=== PATIENT | male | born 1960 | race Caucasian/White ===

== ENCOUNTER 2017-01-22 08:38 | Inpatient (IN) | payer OTHER ==
[~2017-01-22] VITALS: Ht 172.7 cm; Wt 84.6 kg
--- NOTE | ~2017-01-22 | CON ---
[place], [place] REPORT OF CONSULTATION NAME: DILAN CERDA UNIT #: [id number] ROOM: 523 DOCTOR: MARY PEDERSON MD BIRTHDATE: [birth year] DOS: 01/30/2017 CHIEF COMPLAINT: "I have used about everything I can, I need to find a way to get clean or I am going to ." HISTORY OF PRESENT ILLNESS: This is a 56-year-old white male who presented to [facility] for alcohol withdrawal. He states he drinks 12-18 beers a day. His last drink was in the morning of admission at 4:00 a.m. when he finished 1/4 bottle of vodka. In addition to this, he states he has used marijuana. He has shot up Percocet and by his report he has used just about every drug known to mankind and needs to get detoxed. He also admits to depressive symptomatology with poor sleep and appetite, energy, anhedonia, hopeless, helpless feelings, crying spells, and inability to cope. PAST MEDICAL HISTORY: Remarkable for diabetes, hypertension, hypothyroidism, neuropathy and hepatitis C. ALLERGY: He has allergies to STADOL and TORADOL. MENTAL STATUS: He is alert and oriented with some time gaps. Mood is depressed. Affect is flat, blunted with a constricted range. He endorses multiple neurovegetative symptoms. There is no hypomania or hayele. There are no overt psychotic symptoms. Memory has mild gaps. DIAGNOSES: Major depression, recurrent, severe, and polysubstance dependence. PLAN: I am going to go ahead and start him on Remeron 15 mg at bedtime. Check a serum ammonia level. He is awaiting [facility] into [facility]. He could potentially benefit from an inpatient stay. I would not want to delay him going into [facility], but if there is a delay in getting him into that program, a short stay on the psychiatric unit to stabilize on medication would be warranted. MARY PEDERSON MD CM:CONSTR:REPORT OF CONSULTATION 01/31/17 0223 interface
[2017-01-22 08:49] VITALS: BP 123/63
[2017-01-22 09:13] LABS: BASO # 0.1 10*3/uL (0.0-0.1); BASO % 2.2 % (0.0-1.0); EOS # 0.5 10*3/uL (0.0-0.4); EOS % 11.4 % (1.0-4.0); HEMATOCRIT 33.5 % (42.0-52.0); HEMOGLOBIN 11.5 g/dl (14.0-18.0); LYMPH % 25.2 % (27.0-41.0); MEAN CELL VOLUME 96.5 fl (80.0-94.0); MEAN CORPUSCULAR HGB 33.1 pg (27.0-31.0); MEAN CORPUSCULAR HGB CONC 34.3 g/dl (33.0-37.0); MEAN PLATELET VOLUME 9.8 fl (9.6-12.3); MONO # 0.6 10*3/uL (0.1-1.0); MONO % 15.3 % (3.0-9.0); NEUT # 1.8 10*3/uL (2.3-7.9); NEUT % 45.7 % (47.0-73.0); PLATELET COUNT AUTOMATED 123 10*3/uL (130-400); RED BLOOD COUNT 3.47 10*6/uL (4.50-5.90); RED CELL DISTRI WIDTH 14.3 % (0-14.5)
[2017-01-22 09:23] LABS: BILIRUBIN NEGATIVE (NEGATIVE); BLOOD NEGATIVE (NEGATIVE); CLARITY CLEAR (CLEAR); COLOR YELLOW (YELLOW); GLUCOSE 3+ (NEGATIVE); KETONE NEGATIVE (NEGATIVE); LEUKO ESTERASE NEGATIVE (NEGATIVE); NITRITE NEGATIVE (NEGATIVE); SPECIFIC GRAVITY <= 1.005 (1.005-1.030); UROBILINOGEN 0.2 E.U./dl (0.2-1.0)
[2017-01-22 09:32] LABS: ALBUMIN 2.7 gm/dl (3.1-4.5); ALKALINE PHOSPHATASE 165 U/L (45-117); BUN 9 mg/dl (7-24); CHLORIDE 105 mmol/L (98-107); CREATININE 1.28 mg/dL (0.70-1.30); POTASSIUM 3.7 mmol/L (3.5-5.1); SGOT/AST 202 IU/L (3-35); SGPT/ALT 170 U/L (12-78); SODIUM 134 mmol/L (136-145); TOTAL PROTEIN 7.4 gm/dL (6.4-8.2)
[2017-01-22 09:35] LABS: URINE AMPHETAMINES < 1000 (1000ng/ml); URINE BARBITURATES < 200 (200ng/ml); URINE BENZODIAZEPINES < 200 (200ng/ml); URINE CANNABINOIDS (THC) < 50 (50ng/ml); URINE COCAINE < 300 (300ng/ml); URINE METHADONE < 300 (300ng/ml); URINE OPIATES < 300 (300ng/ml)
[2017-01-22 09:36] LABS: URINE PHENCYCLIDINE < 25 (25ng/ml)
[2017-01-22 09:40] LABS: THYROID STIM HORMONE (HS) 0.582 uIU/ml (0.358-4.75)
[2017-01-22 09:51] VITALS: BP 133/78
[2017-01-22 09:59] VITALS: BP 112/69
[2017-01-22 10:01] LABS: RBC 0-2 rbc/hpf (0-2)
[2017-01-22 10:05] VITALS: BP 112/69
--- NOTE | 2017-01-22 10:05 | NUR ---
A 56, admitted to , under the services of OMARI Calderon DO with a diagnosis of ALCOHOL ABUSE. Chief complaint is ALCOHOLISM WITH ADMISSION FOR MEDICAL STABILIZATION WITH [facility]. Patient arrived via CART from ER. Monitor applied. Initial assessment completed. Vital signs taken and recorded. OMARI CALDERON DO notified of admission to the unit. Orders received. See assessment for past medical history, medications and allergies. Patient and/or family oriented to unit. [facility] ICCU visitation policy reviewed. Clothing/patient valuable form completed. ERI DELACRUZ
[2017-01-22] MEDS ORDERED: SYNTHROID137 MCG PO (10:57)
[2017-01-22] MEDS ORDERED: NOVOLOG10 ML SQ (10:59)
[2017-01-22] MEDS ORDERED: LEVEMIR100 UNIT/1 SQ ×2 (11:02→11:04)
[2017-01-22] MEDS ORDERED: LASIX20 MG PO (11:04)
[2017-01-22] MEDS ORDERED: LISINOPRIL20 MG PO (11:04)
[2017-01-22] MEDS ORDERED: NEURONTIN300 MG PO (11:04)
[2017-01-22] MEDS ORDERED: NATURE'S BLEND F1 MG PO (11:05)
[2017-01-22] MEDS ORDERED: ASPIRIN CHEWABL81 MG PO (11:05)
--- NOTE | 2017-01-22 11:48 | NUR ---
MED REC COMPLETED WITH [facility] VIA TELEPHONE.
--- NOTE | 2017-01-22 11:48 | NUR ---
PT HAS BEEN IMMUNIZED.
--- NOTE | 2017-01-22 15:32 | NUR ---
Pt. transferred to ICCU via BED per order of Dr. OAKES. Bed # 3. Development Vice President notified. Family notified. Personal belongings retained on unit.REPORT GIVEN TO RENETTA GAMBLE RN. ERI DELACRUZ
--- NOTE | 2017-01-22 15:40 | NUR ---
ARRIVED VIA BED FROM 5E WITH RN IN ATTENDANCE. HE'S ALERT AND ORIENTED X3. CLAIMS HE HAD BEEN "CLEAN" FOR 18 YEARS BEFORE. WHEN QUESTIONED ABOUT HALLUCINATIONS HE DENIES THEM AT THIS TIME BUT SAYS HE HAS "IN THE PAST". HEP LOCK INTACT RT ANTECUBITAL.
[2017-01-22 15:48] VITALS: BP 115/67
--- NOTE | 2017-01-22 16:00 | NUR ---
MEDICATIONS COUNTED & SENT TO THE PHARMACY. WALLET, FURNITURE REPRODUCER & KEYS SENT TO THE NURSING OFFICE LOCK BOX. PT HAS MILD TREMORS BUT IS AAOX3 AND CO-OPERATIVE WITH TRANSFE & ASSESSMENT
--- NOTE | 2017-01-22 16:27 | NUR ---
ROBAXIN GIVEN FOR BACK PAIN WHILE AWAITNG STAT REFLUX FOR ELEVATED SUGAR.
--- NOTE | 2017-01-22 17:03 | NUR ---
ROUTINE LIBRIUM GIVEN. PT HAVING MILD TREMORS
--- NOTE | 2017-01-22 17:27 | NUR ---
SLEEPING, MACY EASY & NONLABORED
--- NOTE | 2017-01-22 18:43 | NUR ---
Patient displaying withdrawal symptoms, including: irritability, anxiousness, restlessness and agitation, complicated by impulsive behavior. Patient scores a 5 on the withdrawal scale. Scheduled/PRN medications provided, doctor notified of patient's agitation and AMA potential. Will continue to monitor medication effectiveness. PRN VISTARIL GIVEN
[2017-01-22 20:00] VITALS: BP 97/52
--- NOTE | 2017-01-22 20:23 | NUR ---
PT. RESTING IN BED. HEP LOCK IN RAN ASYMPT. LUNGS HAVE EXP. WHEEZES BILAT, PULSE OX 97% ON RA. ABDOMEN SOFT, NONDISTENDED AND NORMO. TRACE BLE EDEMA NOTED. RESP. EASY AND REG, NO DISTRESS. ADALBERTO GRANADOS RN
--- NOTE | 2017-01-22 21:16 | NUR ---
PT. GIVEN BENTYL, DESYREL, REQUIP AND ROBAXIN ORDERED FOR CRAMPS, RESTLESS LEGS, ANXIETY AND INSOMNIA 1T 2108. ADALBERTO GRANADOS RN
--- NOTE | 2017-01-22 22:52 | NUR ---
PT. SLEEPING, PRN MEDS EFFECTIVE.
[2017-01-23] VITALS (7 sets, daily range): BP systolic 99–126; BP diastolic 47–84
[2017-01-23 04:49] LABS: INTERNATIONAL NORM RATIO 1.2 (2.0-3.5)
--- NOTE | 2017-01-23 06:03 | NUR ---
PT. GIVEN ROBAXIN AND VISTARIL AT 0552 ORDERED FOR ANXIETY AND CRAMPING. ADALBERTO GRANADOS RN
--- NOTE | 2017-01-23 06:31 | NUR ---
PT. SLEEPING, ROBAXIN AND VISTARIL EFFECTIVE. ADALBERTO GRANADOS RN
--- NOTE | 2017-01-23 19:39 | NUR ---
PT. REFUSING BATH SET UP OR BED LINEN CHANGE AT THIS TIME. STATED HE WILL DO IT IN AM, WANTS TO SLEEP TONIGHT. ADALBERTO GRANADOS RN
--- NOTE | 2017-01-23 19:43 | NUR ---
PT. RESTING IN BED. AGGITATED AT TIMES. JUST WANTS TO SLEEP. HEP LOCK IN RAN ASYMPT. LUNGS HAVE I&E WHEEZES BILAT. ABDOMEN SOFT, NONDISTENDED AND NORMO. BLE EDEMA NOTED, L>R, PPP. ADALBERTO GRANADOS RN
--- NOTE | 2017-01-23 23:35 | NUR ---
PT. GIVEN DESYREL, REQUIP, ROBAXIN AND VISTARIL ORDERED FOR INSOMNIA, RESTLESS LEGS, MUSCLE CRAMPING AND ANXIETY. CURRENTLY SLEEPING, ABOVE EFFECTIVE. ADALBERTO GRANADOS RN
[2017-01-24] VITALS: BP 96/38
[2017-01-24 04:00] VITALS: BP 123/58
[2017-01-24 04:46] LABS: BASO # 0.1 10*3/uL (0.0-0.1); BASO % 1.9 % (0.0-1.0); EOS # 0.3 10*3/uL (0.0-0.4); EOS % 9.2 % (1.0-4.0); HEMOGLOBIN 10.9 g/dl (14.0-18.0); LYMPH % 31.1 % (27.0-41.0); MEAN CELL VOLUME 96.1 fl (80.0-94.0); MEAN CORPUSCULAR HGB 32.7 pg (27.0-31.0); MEAN CORPUSCULAR HGB CONC 34.1 g/dl (33.0-37.0); MEAN PLATELET VOLUME 9.8 fl (9.6-12.3); MONO # 0.5 10*3/uL (0.1-1.0); MONO % 15.2 % (3.0-9.0); NEUT # 1.3 10*3/uL (2.3-7.9); NEUT % 42.6 % (47.0-73.0); PLATELET COUNT AUTOMATED 102 10*3/uL (130-400); RED BLOOD COUNT 3.33 10*6/uL (4.50-5.90); RED CELL DISTRI WIDTH 14.5 % (0-14.5); WHITE BLOOD COUNT 3.2 10*3/uL (4.8-10.8)
[2017-01-24 05:13] LABS: ALBUMIN 2.2 gm/dl (3.1-4.5); ALKALINE PHOSPHATASE 161 U/L (45-117); BUN 11 mg/dl (7-24); CHLORIDE 109 mmol/L (98-107); POTASSIUM 3.5 mmol/L (3.5-5.1); SGOT/AST 250 IU/L (3-35); SGPT/ALT 165 U/L (12-78); SODIUM 141 mmol/L (136-145); TOTAL PROTEIN 6.6 gm/dL (6.4-8.2)
--- NOTE | 2017-01-24 07:41 | NUR ---
24 HR chart check completed.
[2017-01-24 08:00] VITALS: BP 118/61
--- NOTE | 2017-01-24 10:37 | NUR ---
[facility] STAFF SPOKE WITH PATIENT ABOUT INPATIENT TREATMENT. [facility] STAFF IS WORKING ON GETTING PATIENT INTO [facility] IN [place]. [facility] STAFF WILL FOLLOW-UP WITH PATIENT WITH ANY NEW DEVELOPMENT ON PLACEMENT FOR HIS AFTERCARE PLAN. SUMAYA SILVA B.A. MANAGER CONTINUOUS IMPROVEMENT
[2017-01-24 12:00] VITALS: BP 121/52
--- NOTE | 2017-01-24 12:32 | NUR ---
D/C PLAN: [facility] IN [place] HAS A BED FOR PATIENT FOR SUNDAY THE . THEY WOULD LIKE PATIENT TO BE THERE AROUND NOON. [facility] STAFF WILL SET UP TRANSPORTATION THOUGH PATIENT'S INSURANCE UPON DISCHARGE. SUMAYA SILVA B.A. HEAT PLANT SPECIALIST
--- NOTE | 2017-01-24 14:15 | NUR ---
LACTULOSE SUCCESSFUL X 2.
[2017-01-24 16:00] VITALS: BP 112/60
--- NOTE | 2017-01-24 16:39 | NUR ---
[facility] IN [place] IS REQUESTING INFORMATION THAT PATIENT'S DIABETES IS UNDER CONTROL. SUMAYA SILVA B.A. DATA MODELER
[2017-01-24 20:00] VITALS: BP 98/72
[2017-01-25] VITALS: BP 148/68
[2017-01-25 04:00] VITALS: BP 94/63
[2017-01-25 04:50] LABS: BASO # 0.1 10*3/uL (0.0-0.1); BASO % 1.8 % (0.0-1.0); EOS # 0.4 10*3/uL (0.0-0.4); HEMATOCRIT 33.7 % (42.0-52.0); HEMOGLOBIN 11.3 g/dl (14.0-18.0); LYMPH # 0.9 10*3/uL (1.3-4.4); LYMPH % 25.6 % (27.0-41.0); MEAN CELL VOLUME 97.7 fl (80.0-94.0); MEAN CORPUSCULAR HGB 32.8 pg (27.0-31.0); MEAN CORPUSCULAR HGB CONC 33.5 g/dl (33.0-37.0); MEAN PLATELET VOLUME 10.2 fl (9.6-12.3); MONO # 0.6 10*3/uL (0.1-1.0); MONO % 16.6 % (3.0-9.0); NEUT # 1.5 10*3/uL (2.3-7.9); NEUT % 43.7 % (47.0-73.0); PLATELET COUNT AUTOMATED 112 10*3/uL (130-400); RED BLOOD COUNT 3.45 10*6/uL (4.50-5.90); RED CELL DISTRI WIDTH 14.7 % (0-14.5); WHITE BLOOD COUNT 3.3 10*3/uL (4.8-10.8)
--- NOTE | 2017-01-25 05:13 | NUR ---
SLEEPING. BED EXIT ALARM REMAINS ON AND FUNCTIONAL.
[2017-01-25 05:19] LABS: BUN 9 mg/dl (7-24); CHLORIDE 116 mmol/L (98-107); CREATININE 1.14 mg/dL (0.70-1.30); PHOSPHOROUS 2.4 mg/dL (2.5-4.9); POTASSIUM 3.8 mmol/L (3.5-5.1); SODIUM 145 mmol/L (136-145)
[2017-01-25 08:00] VITALS: BP 145/79
[2017-01-25 08:13] LABS: HEPATITIS C VIRUS ANTIBODY >11.0 s/co (0.0-0.9)
--- NOTE | 2017-01-25 10:39 | NUR ---
INFORMED IN STAND UP THIS AM THAT PT NEEDS SNF STAY. SW WILL START THIS.
[2017-01-25 12:00] VITALS: BP 108/56
--- NOTE | 2017-01-25 13:27 | NUR ---
In to talk with patient, RN present. discussed snf placement, patient stated "that's fine as long as it's not forever" Patient lives in [place] alone, family lives in [facility]. Agrees to snf in [place] will need PT eval prior to making referrals for placement.
--- NOTE | 2017-01-25 13:29 | NUR ---
[facility] STAFF SPOKE WITH DR. CHEN ABOUT PATIENT'S CONDITION. PATIENT WILL NOT BE GOING TO [facility] ON SUNDAY PLANNED. [facility] STAFF SPOKE WITH FACILITY AND THEY ARE WILLING TO LOOK AT HIS ADMISSION FOR POSSIBLY NEXT WEEK IF THERE IS AVAILABILITY. [facility] STAFF WILL KEEP PATIENT UPDATED ON OPENINGS AT [facility]. DUE TO THE SEVERITY OF THE PATIENT'S CONDITION, PATIENT WILL BE DISCHARGED FROM THE [facility]. SUMAYA SILVA B.A. MORTGAGE LOAN UNDERWRITER
--- NOTE | 2017-01-25 13:48 | NUR ---
Contacted [facility] in [facility], faxed referral. Waiting on PT eval and acceptance
[2017-01-25 14:17] LABS: HEPATITIS B SURFACE AG Positive (Negative)
--- NOTE | 2017-01-25 14:31 | NUR ---
AWARE OF HEPATITIS B AND C BEING POSITIVE.
--- NOTE | 2017-01-25 15:11 | NUR ---
PHYSICAL THERAPY PAtient evaluated in ICCU, full evaluation to follow. COntinue with PT as per plan of care with fall, alcohol withdraw and history of Hep B precautions. Significant acute debility, may require LTAC versus SNF in order to return to (I) PLOF. PAtient is high complexity via chart review, tests and evaluatio: [id number]. Thank you for this referral. Lizett Solorzano,PT
--- NOTE | 2017-01-25 15:33 | NUR ---
Occupational Therapy evaluation completed in ICCU with full eval to follow. Precautions include fall risk, poor arousal state, Hepatitis B precautions, bed alarm, ICCU, high complexity level 75489. Recommend OT per POC and SNF upon d/c to enable return to plof. Thank you for this referral. Luanne Mcdonough OTR/l
--- NOTE | 2017-01-25 15:57 | NUR ---
DR. PRUITT RSIDENT IN TOO SEE PATIENT.AWARE OFCONSULT.
[2017-01-25 16:00] VITALS: BP 138/71
[2017-01-25 20:00] VITALS: BP 136/69
[2017-01-26] VITALS: BP 144/82
[2017-01-26 04:00] VITALS: BP 129/65
[2017-01-26 05:59] LABS: ALBUMIN 2.3 gm/dl (3.1-4.5); BUN 9 mg/dl (7-24); CHLORIDE 117 mmol/L (98-107); POTASSIUM 3.4 mmol/L (3.5-5.1); SODIUM 146 mmol/L (136-145)
[2017-01-26 06:01] LABS: ALKALINE PHOSPHATASE 202 U/L (45-117); CREATININE 1.06 mg/dL (0.70-1.30); SGOT/AST 247 IU/L (3-35); SGPT/ALT 189 U/L (12-78); TOTAL PROTEIN 6.9 gm/dL (6.4-8.2)
[2017-01-26 06:07] LABS: BASO # 0.1 10*3/uL (0.0-0.1); BASO % 2.2 % (0.0-1.0); EOS # 0.5 10*3/uL (0.0-0.4); EOS % 11.7 % (1.0-4.0); HEMATOCRIT 33.4 % (42.0-52.0); HEMOGLOBIN 11.2 g/dl (14.0-18.0); LYMPH # 1.5 10*3/uL (1.3-4.4); LYMPH % 31.5 % (27.0-41.0); MEAN CELL VOLUME 99.4 fl (80.0-94.0); MEAN CORPUSCULAR HGB 33.3 pg (27.0-31.0); MEAN CORPUSCULAR HGB CONC 33.5 g/dl (33.0-37.0); MEAN PLATELET VOLUME 10.3 fl (9.6-12.3); MONO # 0.6 10*3/uL (0.1-1.0); MONO % 12.2 % (3.0-9.0); NEUT # 1.9 10*3/uL (2.3-7.9); NEUT % 42.2 % (47.0-73.0); PLATELET COUNT AUTOMATED 120 10*3/uL (130-400); RED BLOOD COUNT 3.36 10*6/uL (4.50-5.90); RED CELL DISTRI WIDTH 14.9 % (0-14.5); WHITE BLOOD COUNT 4.6 10*3/uL (4.8-10.8)
--- NOTE | 2017-01-26 08:45 | NUR ---
TRANSFERED TO 518 NURSE TO NURSE REPORT GIVEN.
--- NOTE | 2017-01-26 09:08 | NUR ---
vulcan crewmember and socal worker in to see patient. Discussed snf placement. Patient is now adamately refusing snf placement, feels very strongly about going [facility] in [facility]. Stated he will sign out AMA if he has to in order to go there. Encouraged patient to discuss medical condition with doctors and consider their recommendations. Will follow
--- NOTE | 2017-01-26 09:30 | NUR ---
automatic data processing planner and [facility] in to see patient. Explained to patient that [facility] is unable to take him today or until his amonia levels are under control, they are willing to take him next week once he is more medically stable. Explained to patient he will need to continue his medical treatment and possibly go to [facility] for a few days to get stronger before he can go to [facility]. Patient was very worried about being discharged to home prior to going to recovery program and stated if that happens he will "get high" with any drug he can get his hands on. I told him if he is discharged from the hospital and is willing to go to [place] prior to [facility] that won't happen. He was in agreement and willing to do whatever he needs to do so he can get into [facility]. Mar[facility] explained to him that if he goes to [place], she will continue to work with him and the halfway to get him there.
--- NOTE | 2017-01-26 11:15 | NUR ---
contacted [facility] [place] to discuss referral that was faxed yesterday. Spoke with rep for intake referrals and she stated she never received the faxed referral. Explained the secratary told me the first fax machine was down and asked me to fax to another number which I did. She was not given the referral. Faxed again this morning to her efax number, she will review referral and get back to me. Waiting on acceptance, will require precert.
--- NOTE | 2017-01-26 11:23 | NUR ---
Patient was not accepted to [facility] due to active drug use.
[2017-01-26 12:00] VITALS: BP 146/84; BP 160/82
--- NOTE | 2017-01-26 13:49 | NUR ---
PHYSICAL THERAPY Patient was resting supine in bed when approached for pm therapy visit and at first declined therapist attempt for treatment. After a brief discussion regarding the benefits of physical therapy, patient agreed to and seen 1:1 for treatment including sup to sit EOB transfer, Mod A x 1. Patient tolerated 8 minutes EOB sit voicing increased generalized weakness. Patient performed several sit to stand transfers, MACHINE GUN MECHANIC/Mod A, demonstrating Poor upright posture and unsteady static standing balance. Patient returned to supine in bed and remained with call light, telephone and bed alarm activated for safety. Will continue per POC as tolerated to improve functional transfers and mobility. Maurizio Gaxiola, MULTISKILL OPERATOR
[2017-01-26 16:00] VITALS: BP 133/59
--- NOTE | 2017-01-26 19:30 | NUR ---
PATIENT IS RESTING IN BED ON THEIR RIGHT SIDE. PATIENT IS COMPLAINING OF LEFT ARM PAIN THAT IS RATED A 8/10. PATIENT WAS COOPERATIVE UPON ASSESSMENT AND DENIES ANY OTHER PAIN OR DISCOMFORT AT THIS TIME. PATIENT DENIES AND N/V BUT IS INCONTINENT AT TIMES. NO DIZZINESS UPON STANDING, AMBULATES WITH ASSIST. HOB ELEVATED, SKIN W/D/I, HEELS ELEVATED. CALL LIGHT WITHIN REACH. SEE SHIFT ASSESSMENT.
[2017-01-26 20:00] VITALS: BP 118/94
--- NOTE | 2017-01-26 20:40 | NUR ---
PATIENT GIVEN DILAUDID PER PT REQUEST FOR SEVERE PAIN RATED AN 8/10 ON THE PAIN SCALE AND DESCRIBED SHARP AND STABBING. WILL MONITOR AND REASSESS.
--- NOTE | 2017-01-26 21:40 | NUR ---
PAIN MEDICATION HAS BEEN EFFECTIVE. PATIENT RATES PAIN A 4/10 AND IS RESTING COMFORTABLY IN THE BED.
[2017-01-27] VITALS: BP 125/77
--- NOTE | 2017-01-27 00:30 | NUR ---
PT SLEEPING IN BED ON RIGHT SIDE. RESP-EASY AND REGULAR. NO C/O AT THIS TIME. CALL LIGHT IN REACH. SEE SHIFT ASSESSMENT.
--- NOTE | 2017-01-27 04:00 | NUR ---
SLEEPING IN BED. RESY-EASY AND REGULAR. CALL LIGHT IN REACH.
--- NOTE | 2017-01-27 06:00 | NUR ---
SLEEPING IN BED AWAKENS EASILY. BSG-124, SEE EMAR. CALL LIGHT IN REACH. TOLERATED ROUTINE MED WITH NO PROBLEM. CALL LIGHT IN REACH.
[2017-01-27 07:07] LABS: HIV 1+2 AB + HIV1 P24 AG Non Reactive (Non Reactive)
[2017-01-27 07:14] LABS: BASO # 0.1 10*3/uL (0.0-0.1); BASO % 1.8 % (0.0-1.0); EOS # 0.5 10*3/uL (0.0-0.4); EOS % 11.9 % (1.0-4.0); HEMATOCRIT 35.5 % (42.0-52.0); LYMPH # 1.4 10*3/uL (1.3-4.4); LYMPH % 30.6 % (27.0-41.0); MEAN CELL VOLUME 99.2 fl (80.0-94.0); MEAN CORPUSCULAR HGB 33.5 pg (27.0-31.0); MEAN CORPUSCULAR HGB CONC 33.8 g/dl (33.0-37.0); MEAN PLATELET VOLUME 9.9 fl (9.6-12.3); MONO # 0.7 10*3/uL (0.1-1.0); MONO % 15.2 % (3.0-9.0); NEUT # 1.8 10*3/uL (2.3-7.9); NEUT % 40.5 % (47.0-73.0); NUCLEATED RED BLOOD CELL 0.4 % (0.0-0.0); PLATELET COUNT AUTOMATED 117 10*3/uL (130-400); RED BLOOD COUNT 3.58 10*6/uL (4.50-5.90); RED CELL DISTRI WIDTH 14.6 % (0-14.5); WHITE BLOOD COUNT 4.5 10*3/uL (4.8-10.8)
[2017-01-27 07:39] LABS: BUN 9 mg/dl (7-24); CHLORIDE 115 mmol/L (98-107); CREATININE 0.99 mg/dL (0.70-1.30); POTASSIUM 3.4 mmol/L (3.5-5.1); SODIUM 146 mmol/L (136-145)
--- NOTE | 2017-01-27 07:52 | NUR ---
NOTIFIED OF PATIENTS CURRENT AMMONIA LEVEL. NO NEW ORDERS.
[2017-01-27 08:00] VITALS: BP 125/78
--- NOTE | 2017-01-27 08:39 | NUR ---
PER PATIENT REQUEST FOR CHRONIC LOWER BACK AND KNEE PAIN DILAUDID WAS GIVEN. PAIN WAS RATED 9/10. WILL MONITOR. PATIENT IS ALERT AND ORIENTED TO SELF, SITUATION, TIME AND PLACE.
--- NOTE | 2017-01-27 09:15 | NUR ---
DILAUDID EFFECTIVE, PATIENT ASLEEP WITH RESPIRATIONS >12
--- NOTE | 2017-01-27 15:15 | NUR ---
DILAUDID GIVEN PER PATIENT REQUEST FOR CHRONIC LOWER BACK AND KNEE PAIN RATED 9/10. WILL MONITOR.
[2017-01-27 16:00] VITALS: BP 156/84
--- NOTE | 2017-01-27 16:00 | NUR ---
DILAUDID EFFECTIVE. PATIENT ASLEEP WITH RESPIRATIONS >12.
[2017-01-27 20:00] VITALS: BP 123/53
[2017-01-28] VITALS: BP 149/79
[2017-01-28 06:48] LABS: BASO # 0.1 10*3/uL (0.0-0.1); BASO % 1.4 % (0.0-1.0); EOS # 0.4 10*3/uL (0.0-0.4); EOS % 7.5 % (1.0-4.0); HEMATOCRIT 35.8 % (42.0-52.0); HEMOGLOBIN 11.8 g/dl (14.0-18.0); LYMPH % 20.7 % (27.0-41.0); MEAN CELL VOLUME 98.6 fl (80.0-94.0); MEAN CORPUSCULAR HGB 32.5 pg (27.0-31.0); MEAN PLATELET VOLUME 9.8 fl (9.6-12.3); MONO # 0.6 10*3/uL (0.1-1.0); NEUT # 2.8 10*3/uL (2.3-7.9); NEUT % 57.2 % (47.0-73.0); PLATELET COUNT AUTOMATED 109 10*3/uL (130-400); RED BLOOD COUNT 3.63 10*6/uL (4.50-5.90); RED CELL DISTRI WIDTH 14.6 % (0-14.5); WHITE BLOOD COUNT 4.8 10*3/uL (4.8-10.8)
[2017-01-28 07:19] LABS: CHLORIDE 111 mmol/L (98-107); POTASSIUM 3.8 mmol/L (3.5-5.1); SODIUM 143 mmol/L (136-145)
[2017-01-28 07:26] LABS: ALBUMIN 2.3 gm/dl (3.1-4.5); ALKALINE PHOSPHATASE 226 U/L (45-117); BUN 13 mg/dl (7-24); CREATININE 1.17 mg/dL (0.70-1.30); SGOT/AST 292 IU/L (3-35); SGPT/ALT 206 U/L (12-78); TOTAL PROTEIN 6.9 gm/dL (6.4-8.2)
--- NOTE | 2017-01-28 07:38 | NUR ---
SPOKE WITH DR. GEOFF MERCHANT CRITICAL AMMONIA LEVEL OF 91. NO NEW ORDERS AT THIS TIME.
--- NOTE | 2017-01-28 08:07 | NUR ---
IN TO SEE PATIENT. HE STATES HE'S TIRED OF BEING HERE AND IS LEAVING RIGHT NOW. I EDUCATED HIM ON THE RISK HE IS TAKING WITH HIS AMMONIA LEVEL. HE STATES HE DONT' CARE AND IS GETTING THE HELL OUT OF HERE. PT VERY UNSTEADY ON FEET AND ACTING BELIGERENT. I DID NOTIFY DR TELLEZ.
--- NOTE | 2017-01-28 09:05 | NUR ---
PT DRESSED SITTING IN CHAIR STATES HIS PHONE IS AND CAN'T CALL ANYONE TO COME GET HIM. IV WAS REMOVED AND PRESSURE DRESSING APPLIED. PT WAS GIVEN A CELLPHONE ANALYSIS REPORTING DEVELOPER TO CHARGE HIS PHONE. NO PHONE NUMBERS ARE LISTED FOR PERSON TO NOTIFY OR NEXT OF KIN.
--- NOTE | 2017-01-28 09:17 | NUR ---
CURRENTLY SLEEPING IN CHAIR
--- NOTE | 2017-01-28 09:45 | NUR ---
PT STILL HERE. AWAKE IN CHAIR AND REFUSING MEDS. STILL ATTEMPTING TO GET A RIDE HOME.
--- NOTE | 2017-01-28 10:22 | NUR ---
ATTEMPTED TO HELP PATIENT FIND A WAY TO GET HOME BY LOOKING IN HIS CELLPHONE WITH HIS PERMISSION. HE STATED HIS ONLY OPTION IS CORE. I HELPED HIM CALL CORE WITH NO ANSWER. NOTIFIED ARTUR AVILA SIGNALING PROJECT ENGINEER OF CURRENT SITUATION.
--- NOTE | 2017-01-28 10:28 | NUR ---
NOTIFIED DR TELLEZ THAT PT DOES NOT REMEMBER SIGNING AMA PAPERS AND IS UNABLE TO FIND A RIDE HOME. RN ENROUTE CONTROLLER UP TO SPEAK WITH PATIENT AND PT AGREED TO STAY UNTIL WE CAN FIND HIM A RIDE HOME. DR TELLEZ STATED HE WILL BE UP TO SEE PATIENT SHORTLY.
[2017-01-28 12:00] VITALS: BP 143/62
--- NOTE | 2017-01-28 14:08 | NUR ---
PER DR KONG HOLD OFF ON DISCHARGE FOR NOW BECAUSE PT DOES NOT HAVE A PLACE TO GO. THEY ARE AWARE HIS IV IS OUT.
[2017-01-28 16:00] VITALS: BP 146/76
--- NOTE | 2017-01-28 19:22 | NUR ---
PATIENT IS SITTING UP IN BED. PATIENT IS ANGRY THAT HE IS NOT BEING DISCHARGED AND THREATENING TO LEAVE. PATIENT WAS TOLD MULTIPLE TIMES THAT THE FACILITY IN [place] HE IS GOING TO IS CLOSED UNTIL SUNDAY. PATIENT IS A&O BUT HAS PERIODS OF CONFUSION. PATIENT DENIES ANY PAIN OR DISCOMFORT UPON ASSESSMENT. PT DENIES SOB AND CAN AMBULATE WITH ONE ASSIST. CALL LIGHT SYSTEM REINFORCED. SEE ASSESSMENT.
[2017-01-28 20:00] VITALS: BP 149/77
[2017-01-29] VITALS: BP 146/58
[2017-01-29 06:54] LABS: BASO # 0.1 10*3/uL (0.0-0.1); BASO % 1.7 % (0.0-1.0); EOS # 0.5 10*3/uL (0.0-0.4); EOS % 9.4 % (1.0-4.0); HEMATOCRIT 39.4 % (42.0-52.0); HEMOGLOBIN 13.4 g/dl (14.0-18.0); LYMPH # 1.9 10*3/uL (1.3-4.4); LYMPH % 33.9 % (27.0-41.0); MEAN CELL VOLUME 96.8 fl (80.0-94.0); MEAN CORPUSCULAR HGB 32.9 pg (27.0-31.0); MEAN PLATELET VOLUME 9.5 fl (9.6-12.3); MONO # 0.7 10*3/uL (0.1-1.0); MONO % 11.9 % (3.0-9.0); NEUT # 2.5 10*3/uL (2.3-7.9); NEUT % 42.9 % (47.0-73.0); PLATELET COUNT AUTOMATED 138 10*3/uL (130-400); RED BLOOD COUNT 4.07 10*6/uL (4.50-5.90); RED CELL DISTRI WIDTH 14.7 % (0-14.5); WHITE BLOOD COUNT 5.7 10*3/uL (4.8-10.8)
[2017-01-29 07:29] LABS: ALBUMIN 2.6 gm/dl (3.1-4.5); ALKALINE PHOSPHATASE 237 U/L (45-117); BUN 11 mg/dl (7-24); CHLORIDE 113 mmol/L (98-107); CREATININE 1.13 mg/dL (0.70-1.30); POTASSIUM 3.2 mmol/L (3.5-5.1); SGOT/AST 325 IU/L (3-35); SGPT/ALT 229 U/L (12-78); SODIUM 144 mmol/L (136-145); TOTAL PROTEIN 7.9 gm/dL (6.4-8.2)
--- NOTE | 2017-01-29 07:33 | NUR ---
DR. OAKES NOTIFIED OF CRITICAL AMMONIA OF 101. WILL CONTINUE SCHEDULED LACTULOSE.
[2017-01-29 08:00] VITALS: BP 126/84
--- NOTE | 2017-01-29 10:27 | NUR ---
DR. PEDERSON NOTIFIED OF CONSULT FOR CONFUSION. DR. MONTES STATES HE WILL BE IN TO SEE THE PATIENT TOMORROW.
--- NOTE | 2017-01-29 10:55 | NUR ---
PATIENT RESTING IN BED. PATIENT HAS FREQUENT PERIODS OF CONFUSION BUT IS AWAKE AND ALERT. PATIENT IS AMBULATORY WITH AN UNSTEADY GAIT. PATIENT DENIES ANY PAIN OR DISCOMFORT AT THIS TIME. PATIENT WAS COOPERATIVE UPON MORNING ASSESSMENT. CALL LIGHT WITHIN REACH. SEE ASSESSMENT.
--- NOTE | 2017-01-29 11:35 | NUR ---
PATIENT SEEN FOR OT THIS DATE 15 MINUTES. PATIENT IDENTIFIED BY NAME AND DATE OF . PATIENT SEATED EOB FEEDING DEMONSTRATING GOOD SIT BALANCE AND F ACTIVITY TOLERANCE. PATIENT REPORTS THAT HE JUST WANTS TO SMOKE AND GO TO REHAB. PATIENT COMPLETED STANDING TOLERANCE ACTIVTY 3 MINUTES SBA WITHOUT AD THIS DATE WITH MIN VERBAL CUES SAFETY INCREASE STANCE FOR FALL PREVENTION. PATIENT IMPULSIVE AT TIMES AND REQUIRED VERBAL CUES SAFETY AND MAINTAIN ATTENTION TO TASK. PATIENT COMPLETED BUE AROM 3 EXERCISES X 15 REPS WITH VERBAL CUES TECHNIQUE/ FORM FOR OVERALL INCREASE FUNCTIONAL PERFORMANCE. MARIIA ISAACS/Ella
--- NOTE | 2017-01-29 11:49 | NUR ---
PHYSICAL THERAPY Patient seen this am 1:1 for therapy sitting up EOB upon therapist arrival and repeatedly stated he wanted out of this place, insisiting he was going to get up and walk right out. Patient also voiced multiple times that he really needed a cigarette, using very colorful language. Patient however did agree to participate this morining by transfering sit to stand, CGA x 1, demonstrating Fair- balance. Patient also unable to perform single leg stance with multiple LOB. Patient ambulated SENIOR GAME ADVISOR/CGA, 125'x 1, demonstrating very unsteady gait pattern with impulsive behavior. Patient needed multiple v/c's for safety awareness and to avoid risk of falling during 180 degree turns. Patient returned to and remained EOB following treatment. Will continue per POC as tolerated. Maurizio Gaxiola, BUSINESS MANAGER
--- NOTE | 2017-01-29 13:24 | NUR ---
PT GIVEN MOTRIN PER REQUEST FOR PAIN IN LOWER BACK. PATIENT DESCRIBES PAIN A DULL ACHE. WILL CONTINUE TO MONITOR AND REASSESS.
--- NOTE | 2017-01-29 13:43 | NUR ---
PATIENT HAS BEEN PLEASANT AND COOPERATIVE AND SITTING AT THE BEDSIDE. PATIENT HAS BEEN CONCERNED ABOUT WHERE HE IS GOING UPON DISCHARGE. PATIENT IS FREQUENTLY CONFUSED AND NEEDS REORIENTED OFTEN. PATIENT DENIES ANY SOB, N/V/D, OR DIZZINESS UPON STANDING. SKIN IS W/D/I. CALL LIGHT IS WITHIN REACH.
[2017-01-29 16:00] VITALS: BP 148/84
[2017-01-29 20:00] VITALS: BP 129/73
--- NOTE | 2017-01-29 20:00 | NUR ---
LAB RESULTS AND ORDERS REVIEWED. PT STANDING IN HALLWAY WANTING A NIGHT SNACK. NO S AND S OF ACUTE DISTRESS NOTED. RN NOTIFIED DIETARY ON FLOOR FOR SNACK.
[2017-01-30] VITALS: BP 133/65
--- NOTE | 2017-01-30 04:00 | NUR ---
PT IN BED RESTING. NO ACUTE DISTRESS NOTED AT THIS TIME. WILL CONTINUE TO MONITOR.
[2017-01-30 07:14] LABS: BASO # 0.1 10*3/uL (0.0-0.1); BASO % 1.7 % (0.0-1.0); EOS # 0.4 10*3/uL (0.0-0.4); HEMATOCRIT 35.1 % (42.0-52.0); HEMOGLOBIN 11.6 g/dl (14.0-18.0); LYMPH # 1.4 10*3/uL (1.3-4.4); LYMPH % 29.1 % (27.0-41.0); MEAN CELL VOLUME 97.2 fl (80.0-94.0); MEAN CORPUSCULAR HGB 32.1 pg (27.0-31.0); MEAN PLATELET VOLUME 9.3 fl (9.6-12.3); MONO # 0.7 10*3/uL (0.1-1.0); MONO % 14.8 % (3.0-9.0); NEUT # 2.2 10*3/uL (2.3-7.9); NEUT % 46.2 % (47.0-73.0); PLATELET COUNT AUTOMATED 114 10*3/uL (130-400); RED BLOOD COUNT 3.61 10*6/uL (4.50-5.90); RED CELL DISTRI WIDTH 14.6 % (0-14.5); WHITE BLOOD COUNT 4.7 10*3/uL (4.8-10.8)
[2017-01-30 07:46] LABS: BUN 15 mg/dl (7-24); CHLORIDE 111 mmol/L (98-107); CREATININE 1.25 mg/dL (0.70-1.30); POTASSIUM 3.3 mmol/L (3.5-5.1); SODIUM 144 mmol/L (136-145)
[2017-01-30 08:00] VITALS: BP 134/74
--- NOTE | 2017-01-30 08:28 | NUR ---
Shift chart check completed.
--- NOTE | 2017-01-30 09:44 | NUR ---
PHYSICAL THERAPY Jett seen this AM 1:1 for his therapy session, Pt having Hip B. All transfers were CG X 1. Gait into pt's bathroom 12' X 1, MIN MANUFACTURING TEAM LEADER X 1. Followed by gait 85' X 1, and needing to go to the bathroom again gait MIN MANUFACTURING TEAM LEADER X 1, verbal cues to slow his gait down for his safety. After using his bathroom Jett wanting to go back to bed. No LOB with this but Pt needs MIN MANUFACTURING TEAM LEADER X 1, right now for his gait safety. SONAL BUENO ECHOMETER ENGINEER.
--- NOTE | 2017-01-30 10:31 | NUR ---
PATIENT SEEN 1:1 OT THIS DATE. PATIENT IDENTIFIED BY NAME AND DATE OF . PATIENT SEATED ON EOB THIS DATE. PATIENT COMPLETED BUE AROM SEATED ALL PLANES X 15 REPS WITH MOD VERBAL CUES TECH/FORM AND TO PACE SELF. PATIENT DEMONSTRATED GOOD SIT BALANCE THIS DATE. COMPLETED STANDING TOLERANCE CGA WITH STAND TOLERANCE 3 MIN X1 AND 2 MIN X SECOND STAND COMPLETING DYNAMIC BALANCE ACTIVITY. PATIENT IMPULSIVE AND REQUIRES VERBAL CUES SAFETY SECONDARY DECREASE SAFETY AWARENESS. PATIENT REPORTS LOOSE BOWELS THIS DATE AND FREQUENT BM. PATIENT COMPLETED VARIOUS XFERS IN ROOM WITHOUT USE AD SBA TOILET AND BED. PATIENT COMPLETED GROOMING TASK SBA WITH RETRIEVAL OF COMB FROM CUPBOARD WITH LOSS BALANCE X 1 AND CGA RECOVER. MARIIA RAMONER FERNY/Ella
[2017-01-30 12:00] VITALS: BP 147/74
[2017-01-30] MEDS ORDERED: MIRTAZAPINE15 M2 PO (15:22)
[2017-01-30] MEDS ORDERED: LACTULOSE20 GM/30 M PO (15:22)
--- NOTE | 2017-01-30 17:15 | NUR ---
PATIENT WENT TO [facility]. REPORT GIVEN TO BARNEY. PATIENT STABLE
[2017-01-30] MEDS ORDERED: THIAMINE HCL100 MG PO (18:43)
[2017-01-30] MEDS ORDERED: MULTIVITAMINS1 EAC5 PO (18:44)
--- NOTE | 2017-01-31 06:28 | NUR ---
PHYSICAL THERAPY CO-SIGN I approve of the Phyical Therapy notes written above. CHITRA NATARAJAN PT
--- NOTE | 2017-01-31 08:14 | NUR ---
OCCUPATIONAL THERAPY CO-SIGN I approve of the Occupational Therapy notes written above. SHIRA PERALTA OTR/Ella
== END 2017-01-30 17:15 | disposition home health service (06) | DRG 896 ==
LOC: ED 08:38 → EDHOLD 09:06 → ICCU 09:06 → 5E 09:41 → ICCU 15:19 → 5E 01-26 08:29 → ICCU 01-26 08:33 → 5E 01-26 08:36
PROVIDERS: Emergency Medicine; Family Medicine; Hospitalist; Internal Medicine; ADMIT Internal Medicine
DX: F10.239 Alcohol dependence with withdrawal, unspecified (principal); E43 Unspecified severe protein-calorie malnutrition; G93.41 Metabolic encephalopathy; D61.818 Other pancytopenia; E72.20 Disorder of urea cycle metabolism, unspecified; F33.2 Major depressive disorder, recurrent severe without psychotic features; E11.40 Type 2 diabetes mellitus with diabetic neuropathy, unspecified; E87.0 Hyperosmolality and hypernatremia; E87.1 Hypo-osmolality and hyponatremia; B16.9 Acute hepatitis B without delta-agent and without hepatic coma; E87.6 Hypokalemia; F12.10 Cannabis abuse, uncomplicated; E11.65 Type 2 diabetes mellitus with hyperglycemia; I10 Essential (primary) hypertension; E03.9 Hypothyroidism, unspecified; B19.20 Unspecified viral hepatitis C without hepatic coma; F17.210 Nicotine dependence, cigarettes, uncomplicated; Z79.4 Long term (current) use of insulin; Z79.82 Long term (current) use of aspirin; Z79.899 Other long term (current) drug therapy; Z71.6 Tobacco abuse counseling; Z88.8 Allergy status to other drugs, medicaments and biological substances; Z80.8 Family history of malignant neoplasm of other organs or systems; Z82.49 Family history of ischemic heart disease and other diseases of the circulatory system

== ENCOUNTER 2017-01-30 16:26 | Inpatient (IN) | payer OTHER ==
[~2017-01-30] VITALS: Ht 172.7 cm; Wt 90.7 kg
--- NOTE | ~2017-01-30 | WRIGHTHP ---
[place], [place] PATIENT HISTORY AND PHYSICAL EXAM [id number] #: [id number] ROOM: 310 DOCTOR: MARY PEDERSON MD BIRTHDATE: [birth year] DOS: 01/31/2017 INITIAL PSYCHIATRIC EVALUATION CHIEF COMPLAINT: "I am just so depressed, I have to stop killing myself." HISTORY OF PRESENT ILLNESS: This is a 56-year-old white male who was initially admitted due to altered mental status. He was admitted into the [facility] and went through alcohol detox. The patient has a very lengthy history of polysubstance abuse, most recently he has been drinking an excessive amount of alcohol, but he also has abused marijuana, opiates and just about anything he can get his hands on. He reports that he is feeling increasingly depressed with poor sleep and appetite, energy, anhedonia, hopeless, helpless feelings, crying spells and inability to cope. The patient states that if he does not get help, he is going to wind up killing himself. He is admitted now to rule out organic factors and to stabilize on medication. PAST MEDICAL HISTORY: Remarkable for cirrhosis, diabetes, hypertension, hepatitis B, hepatitis C, hypothyroidism, anemia, neuropathy, polysubstance abuse and severe protein-calorie malnutrition. ALLERGIES: He has allergies to STADOL. MENTAL STATUS: He is alert and oriented. Mood is overwhelmingly depressed. Affect is flat and blunted with a constricted range. He endorses multiple neurovegetative symptoms including suicidal thoughts. There is no haylee or hypomania. There are no overt auditory or visual hallucinations. No delusions, no paranoia. Memory for the most part is intact. DIAGNOSES: Major depression, recurrent, severe and polysubstance dependence. PLAN: I have already started him on Remeron 15 mg at bedtime. His ammonia level is elevated, but he was refusing the lactulose, so I will discontinue it in lieu of neomycin 1000 mg every 6 hours. We will engage in individual and hernandez milieu activity, attempt to get him into an alcohol and drug rehab facility. I did offer him ReVia and Vivitrol as options to decrease the alcohol craving, but he vehemently refused any type of medication intervention, stating that he does not want any other medicine. I tried to explain to him that these were not addictive medicines, nor were they medicines aimed at making him sick if he drank, but again he refused them. At this point, we will support and monitor. [place], [place] PATIENT HISTORY AND PHYSICAL EXAM NAME: DILAN CERDA UNIT #: [id number] ROOM: 310 DOCTOR: MARY PEDERSON MD BIRTHDATE: [birth year] MARY PEDERSON MD CM:HISPHYS:PATIENT HISTORY AND PHYSICAL EXAMINATION [phone] MARY PEDERSON MD 01/31/17 08 interface
--- NOTE | ~2017-01-30 | DS ---
[place], [place] DISCHARGE SUMMARY NAME: DILAN CERDA UNIT #: [id number] ROOM: 310 DOCTOR: MARY PEDERSON MD BIRTHDATE: [birth year] DOS: 02/01/2017 CHIEF COMPLAINT: "I am just so depressed, I am killing myself by using all these shit." HISTORY OF PRESENT ILLNESS: This is a 56-year-old white male who was initially admitted to [facility] due to altered mental status. He was admitted into the [facility] for alcohol withdrawal and detoxification as well as polysubstance abuse. The patient has been drinking excessively for a long time, but has also been abusing marijuana, opiates and just about anything he can get his hands on. He reported increased depression with poor sleep and appetite, energy, anhedonia, hopeless, helpless feelings. He feels that he is gradually killing himself with the substance abuse issues and is hoping to be able to get into rehabilitation. He was then admitted to the psych unit for further stabilization. PAST MEDICAL HISTORY: Remarkable for cirrhosis, diabetes, hypertension, hepatitis B, hepatitis C, hypothyroidism, anemia, neuropathy, polysubstance abuse and severe protein-calorie malnutrition. ALLERGY: He has allergies to STADOL. SUMMARY OF HOSPITAL COURSE: The patient was admitted to the unit where he was started on Remeron 15 mg at bedtime as an antidepressant. He had very immediate positive results with this as his sleep and appetite both improved dramatically. His serum ammonia level on admission was markedly elevated at 167; however, he refused Chronulac. Neomycin 1000 mg 4 times a day was added and he was compliant with this. The patient pushed for discharge stating that he was tired of waiting to get into the rehab and he could check on the rehabilitation program daily himself and did not need to stay here just in order to wait for the rehab facility to have a bed. He convincingly denied suicidal thoughts, homicidal thoughts and stated that he had improved sufficiently with the Remeron that sleep and appetite were so much better, he felt he could return home. He denied side effects from the medications themselves. MENTAL STATUS AT DISCHARGE: The patient was alert and oriented with time gaps. Mood was trending towards euthymia. Affect was appropriate. There was no haylee or psychosis. There was no mood lability. Memory had short-term gaps. FINAL DIAGNOSES: Major depression, recurrent, severe, and polysubstance dependence. PLAN: All of his medicines except for the vitamin D have been e-scribed to the [facility]. The other was printed and will be sent with him. He will follow up himself for the program in [place] for rehabilitation. From a psychiatric standpoint, he should follow up with [facility]. [place], [place] DISCHARGE SUMMARY NAME: DILAN CERDA UNIT #: [id number] ROOM: 310 DOCTOR: MARY PEDERSON MD BIRTHDATE: [birth year] MARY PEDERSON MD CM:DISCHARG [phone] MARY PEDERSON MD 02/01/17 1011 interface
[~2017-01-30 16:26] MED LIST: ASPIRIN CHEWABL81 MG PO; LACTULOSE20 GM/30 M PO; LASIX20 MG PO; LEVEMIR100 UNIT/1 SQ; LISINOPRIL20 MG PO; MIRTAZAPINE15 M2 PO; NATURE'S BLEND F1 MG PO; NEURONTIN300 MG PO; NOVOLOG10 ML SQ; SYNTHROID137 MCG PO
--- NOTE | 2017-01-30 17:08 | NUR ---
DILAN CERDA a 56 year old M admitted via wheel chair from the OTHER as a voluntary admission. Arrived on unit at 1708. ALLERGIES: TORODOL AND STADOL . Vital signs are: [id number] 132/64. The client signed the following forms with stated understanding: Authorization For The Release of Medical Information, Clothing List, Consent to Voluntary Admission and Hospitalization, Consent and Release Forms/Receipt of Rights, Acknowledgement of Advance Directive Information, Behavioral Health Consent Form, and Informed Consent of Medications. Admitted under the services of Dr. DACIA HANDLEYMARY. A search was conducted and hazardous articles were removed. Client was oriented to the unit. MADE AWARE OF NEW CONSULT AND DISCREPENCY OF LISINOPRIL ORDER. BARNEY BUSTILLO
[2017-01-30 17:16] VITALS: BP 132/64
[2017-01-30] MEDS ORDERED: THIAMINE HCL100 MG PO (18:43)
[2017-01-30] MEDS ORDERED: MULTIVITAMINS1 EAC5 PO (18:44)
[2017-01-30 20:00] VITALS: BP 130/78
--- NOTE | 2017-01-30 22:02 | NUR ---
IRRITABLE WHEN AWAKENED FOR MEDICATIONS. REFUSED LACTULOSE EVEN AFTER EXPLAINING IMPORTANCE OF IT TO LOWER HIS AMMONIA LEVEL TO BE ABLE TO GO TO REHAB. STATES THAT MAYBE HE WILL TAKE 1/2 OF IT. EXPLAINED I CANNOT CHANGE THE ORDER OF THE DOCTOR AND FOR HIM TO SPEAK WITH DOCTOR IN MORNING. CLIENT AGREED. DECLINED 1:1 AN SAID HE JUST WANTED TO GO BACK TO SLEEP. INFORMED HIM I WOULD BE BACK IN SOON HIS FLEX PEN ARRIVES. OFFERED TO HELP HIM WITH PM CARE BUT HE REFUSED ALL EVEN ORAL CARE. MOVES ALL EXTREMETIES AND ABLE TO REPOSITION HIMSELF
--- NOTE | 2017-01-31 00:43 | NUR ---
BACK TO SLEEP AFTER GETTING UP AND WALKING DOWN TO DININGROOM.
--- NOTE | 2017-01-31 01:33 | NUR ---
DR Gary VASQUEZ HERE TO SEE CLIENT
--- NOTE | 2017-01-31 02:00 | NUR ---
24 HR chart check completed.
--- NOTE | 2017-01-31 06:12 | NUR ---
SLEPT WELL MOST SHIFT A FEW INTERUPTIONS. UP EARLY AND GOT SHOWER AND DID ORAL CARE. CURRENTLY IN DININGROOM
--- NOTE | 2017-01-31 07:41 | NUR ---
PHYSICAL THERAPY PAtient evaluated on 3, full evaluation to follow. Continue with PT as per plan of care with fall, unit three, alcoholic withdraw and acute debility precautions. PAtient to drug rehab after this admitt for d/c planning. PAtient is high compleixty via chart review, tests and evaluation: [id number]. Thank you for this referral. Lizett Solorzano,PT
[2017-01-31 07:49] VITALS: BP 141/74
[2017-01-31 08:01] LABS: BASO # 0.1 10*3/uL (0.0-0.1); BASO % 1.8 % (0.0-1.0); EOS # 0.5 10*3/uL (0.0-0.4); EOS % 11.6 % (1.0-4.0); HEMATOCRIT 37.1 % (42.0-52.0); HEMOGLOBIN 12.5 g/dl (14.0-18.0); LYMPH # 1.3 10*3/uL (1.3-4.4); LYMPH % 32.4 % (27.0-41.0); MEAN CELL VOLUME 97.6 fl (80.0-94.0); MEAN CORPUSCULAR HGB 32.9 pg (27.0-31.0); MEAN CORPUSCULAR HGB CONC 33.7 g/dl (33.0-37.0); MEAN PLATELET VOLUME 9.6 fl (9.6-12.3); MONO # 0.5 10*3/uL (0.1-1.0); MONO % 13.1 % (3.0-9.0); NEUT # 1.6 10*3/uL (2.3-7.9); NEUT % 40.8 % (47.0-73.0); PLATELET COUNT AUTOMATED 128 10*3/uL (130-400); RED CELL DISTRI WIDTH 14.6 % (0-14.5)
[2017-01-31 08:22] LABS: ALBUMIN 2.5 gm/dl (3.1-4.5); BUN 11 mg/dl (7-24); CHLORIDE 113 mmol/L (98-107); POTASSIUM 4.1 mmol/L (3.5-5.1); SODIUM 144 mmol/L (136-145)
[2017-01-31 08:28] LABS: ALKALINE PHOSPHATASE 212 U/L (45-117); SGOT/AST 318 IU/L (3-35); SGPT/ALT 230 U/L (12-78); TOTAL PROTEIN 7.5 gm/dL (6.4-8.2)
--- NOTE | 2017-01-31 08:38 | NUR ---
LAB REPORTED CRITICAL AMMONIA LEVEL OF 167. NOTIFIED AT THIS TIME. NO NEW ORDERS, PER ISSUE IS BEING ADDRESSED WITH MEDICATION.
--- NOTE | 2017-01-31 09:17 | NUR ---
AIDAN spoke with Marifer from [facility] to set up a time to meet with pt. together to discuss pt's concerns and d/c plans. Marifer and Aidan will meet with pt. at 10am.
--- NOTE | 2017-01-31 10:51 | NUR ---
Occupational Therapy evaluation completed this date on 3 with full eval to follow. Precautions include unsteady gait w/o LOB or device, forward posture, disoriented to place. Recommend no further OT at this time. Patient to go to drug rehab upon d/c as medically able. Thank you for this referral. Luanne Mcdonough OTR/l
--- NOTE | 2017-01-31 11:25 | NUR ---
PER KELLI AT [facility], IP FLOR 7 DAYS. NEXT REVIEW DUE Sunday02/05/17.
--- NOTE | 2017-01-31 11:30 | NUR ---
Goals,Exercise,Pakistani Trivia Patient was in attendence for part of group but did not participate. At begining of group patient walked out of room and returned about 15 minutes later. Patient refused to plan a goal for today. This AC tried to incourage patient but patient became agitated stating a little loudly "I don't want to." Patient sat with his head on the table for the rest of group, walking out about 10 minutes before group was over.
--- NOTE | 2017-01-31 11:55 | NUR ---
[facility] Psychosocial assessment. pt. to be d/c'ed next week to [facility] in [place], [place] per Marifer of [facility]. Marifer is facilitating the d/c to that agency once pt. ammonia level is stable and diabetes is under control.
--- NOTE | 2017-01-31 11:59 | NUR ---
PT ALERT TO PERSON,PLACE, AND SITUATION, CONFUSED TO PLACE THINKING HE IS AT [facility]. PT MED COMPLIANT WITHOUT DIFFICULTY, MED EDUCATION PROVIDED. PT IRRITABLE AT TIMES. PT CALM, ISOLATIVE TO ROOM, VERY MINIMAL INTERACTION WITH STAFF NOTED. NO HALLUCINATIONS OR DELUSIONS NOTED. PT DENIES ANY HOMICIDAL/SUICIDAL THOUGHTS. PT AMBULATORY THOROUGHOUT UNIT, GAIT STEADY BUT SHUFFLED. PT CONTINENT OF BOWEL AND BLADDER. PLAN IS TO ENCOURAGE PT TO VOICE ANY HALLUCINATIONS OR DELUSIONS, PRESENT REALITY WITH EACH INTERACTION AND NEEDED, MONITOR BEHAVIORS ON Q15 MIN SAFETY CHECKS, ENCOURAGE PT TO PARTICIAPTE IN GROUPS/ACTIVITIES.
--- NOTE | 2017-01-31 12:45 | NUR ---
ON UNIT TO ASSESS PT. PT VOICED TO ABOUT HAVING BILLS TO PAY ON THE FIRST OF THE MONTH, AND NOT WANTING TO PAY LATE FEES. THIS NURSE QUESTIONED IF HE HAD SOMEONE HE COULD HAVE PAY HIS PILLS PT STATED "I HAVE A DEBIT CARE, WOULD YOU GIVE IT TO A CRACK HEAD KNOWING HE'S GOING TO TAKE ALL YOUR MONEY AND SMOKE IT UP? I DON'T KNOW IF I CAN STAY HERE, I CAME IN VOL[place]TARILY SO I CAN LEAVE IF I WANT TO?" EDUCATED PT ON THE PROCESS, AND ADVISED THAT I WOULD SPEAK WITH THE
--- NOTE | 2017-01-31 14:00 | NUR ---
ADVISED DR. PEDERSON OF PT WANTING TO SIGN OUT, PER SPEAK WITH THE PT TO SEE IF HE WOULD BE WILLING TO WAIT UNITL TOMORROW UNITL HE CAN BE SEEN BY HIM. ADVISED PT OF REQUEST, PER PT HE IS WILLING TO WAIT UNTIL TOMORROW, PT STATING "OK WHEN WILL THE DR BE HERE." ADVISED PT THAT DR USUALLY ROUNDS IN THE MORNING. NO FURTHER ISSUES AT THIS TIME.
[2017-01-31 20:02] VITALS: BP 143/77
--- NOTE | 2017-01-31 20:18 | NUR ---
ATE SNACK THEN RETURNED TO BED. HAS DIFFICULTY WITH SHORT TERM MEMORY. UNABLE TO REMEMBER HOW TO WORK LIGHTS IN HIS ROOM. GAIT SLOW AND SHUFFLING. ARM MOVEMENTS SLOW. SPEACH SLURRED PER BASLINE. REFUSED 1:1
--- NOTE | 2017-02-01 00:31 | NUR ---
24 HR chart check completed.
--- NOTE | 2017-02-01 04:18 | NUR ---
LABS DRAWN PER ORDERS
[2017-02-01 07:02] LABS: VITAMIN D, 25-HYDROXY 23.8 ng/mL (30-100)
[2017-02-01] MEDS ORDERED: NEOMYCIN SULFA500 MG PO (07:58)
[2017-02-01] MEDS ORDERED: MIRTAZAPINE15 M2 PO (07:58)
[2017-02-01] MEDS ORDERED: Vitamin D PO (07:58)
[2017-02-01 08:14] VITALS: BP 130/88
--- NOTE | 2017-02-01 08:50 | NUR ---
DR. GUTIERREZ NOTIFIED TO UPDATE DR. CHEN OF PATIENT'S DISCHARGE TODAY.
[2017-02-01] MEDS ORDERED: LEVEMIR100 UNIT/1 SQ (09:07)
[2017-02-01] MEDS ORDERED: ASPIRIN CHEWABL81 MG PO (09:07)
[2017-02-01] MEDS ORDERED: NOVOLOG10 ML SQ (09:07)
[2017-02-01] MEDS ORDERED: MULTIVITAMINS1 EAC5 PO (09:07)
[2017-02-01] MEDS ORDERED: THIAMINE HCL100 MG PO (09:07)
[2017-02-01] MEDS ORDERED: NEURONTIN300 MG PO (09:07)
[2017-02-01] MEDS ORDERED: NATURE'S BLEND F1 MG PO ×2 (09:07→09:08)
[2017-02-01] MEDS ORDERED: LISINOPRIL20 MG PO (09:07)
[2017-02-01] MEDS ORDERED: SYNTHROID137 MCG PO (09:07)
--- NOTE | 2017-02-01 10:00 | NUR ---
PATIENT IS ALERT AND ORIENT TO PERSON, PLACE AND TIME; ABLE TO VOICE NEEDS. MOOD IS STABLE, PREOCCUPIED WITH GOING HOME, SEXUALLY INAPPROPRIATE ASKING NURSE IF HE COULD GIVE THIS NURSE A WET PRATIK. REDIRECTED AND EFFECTIVE. DENIES ANY HALLUCINATIONS, DELUSIONS, HI/SI OR PAIN. INDEPENDANT WITH ACTIVITIES OF DAILY LIVING. CONTINENT OF BOWEL AND BLADDER. AMBULATORY WITH SHUFFLING GAIT. MEAL INTAKES ARE GOOD WITH ADEQUATE FLUIDS. Q 15 MINUTE SAFETY CHECKS MAINTAINED.
--- NOTE | 2017-02-01 10:44 | NUR ---
Goals,Exercise,Thanksgiving Puzzles Patient was in attemdence for group but refused to participate. Patient being rude and argumentive when encouraged to participate
--- NOTE | 2017-02-01 10:46 | NUR ---
PT DISCHARGED TO HOME VIA BLESSED TRANSPORTATION. ALL BELONGINGS AND DISCHARGE PACKET SENT WITH PT.
== END 2017-02-01 10:45 | disposition home or self-care (01) | DRG 896 ==
LOC: 3N 16:26
PROVIDERS: Internal Medicine; ADMIT Psychiatry & Neurology Psychiatry
DX: F19.20 Other psychoactive substance dependence, uncomplicated (principal); E43 Unspecified severe protein-calorie malnutrition; F11.20 Opioid dependence, uncomplicated; F10.20 Alcohol dependence, uncomplicated; E11.40 Type 2 diabetes mellitus with diabetic neuropathy, unspecified; F33.2 Major depressive disorder, recurrent severe without psychotic features; B16.9 Acute hepatitis B without delta-agent and without hepatic coma; B17.10 Acute hepatitis C without hepatic coma; K70.31 Alcoholic cirrhosis of liver with ascites; F12.20 Cannabis dependence, uncomplicated; E03.9 Hypothyroidism, unspecified; R16.1 Splenomegaly, not elsewhere classified; I10 Essential (primary) hypertension; D53.9 Nutritional anemia, unspecified; E11.65 Type 2 diabetes mellitus with hyperglycemia; Z88.8 Allergy status to other drugs, medicaments and biological substances; Z90.49 Acquired absence of other specified parts of digestive tract; Z82.49 Family history of ischemic heart disease and other diseases of the circulatory system; Z80.8 Family history of malignant neoplasm of other organs or systems; Z79.899 Other long term (current) drug therapy; Z79.82 Long term (current) use of aspirin; Z79.4 Long term (current) use of insulin; Z72.0 Tobacco use; Z68.30 Body mass index [BMI] 30.0-30.9, adult